=== PATIENT | male | born 2000 | race Caucasian/White ===

== ENCOUNTER 2018-11-05 11:28 | Emergency (ER) | payer OTHER ==
[~2018-11-05] VITALS: Ht 175.3 cm; Wt 77.3 kg
[2018-11-05 11:45] VITALS: BP 121/77
[2018-11-05 15:10] VITALS: TEMP 98.9
[2018-11-05 15:42] VITALS: PULSE 87
== END 2018-11-05 15:44 | disposition home or self-care (01) ==
LOC: COL.ER 11:28
DX: S02.2XXA Fracture of nasal bones, initial encounter for closed fracture (principal); W01.198A Fall on same level from slipping, tripping and stumbling with subsequent striking against other object, initial encounter; Y92.410 Unspecified street and highway as the place of occurrence of the external cause